=== PATIENT | male | born 1960 | race Caucasian/White ===

== ENCOUNTER → 2016-11-04 | Day surgery (SDC) | payer BC ==
[~2016-11-04] MED LIST: BETA VAL; CLOBETASOL PROP15 GM TOP; EXCEDRIN MIGRA1 EACH PO; FLEXERIL PO; GLUCOSAMINE500 M1; KETOPROFEN PO; MEDROL PO; MULTI VITAMIN1 EACH PO; NAPROSYN500 MG PO; ROBAXIN500 MG PO; VITAMIN C1000 M2 PO; [UNRECOGNIZED DRUG - CODE] TOP
--- NOTE | ~2016-11-04 | OR ---
Unit #: [id number] #: [id number] Patient: KAYLYN MCKEON [id number] [id number] MR#: [id number] NAME: KAYLYN MCKEON. ROOM: Date of Procedure: 11/04/2016 Admission Date: 11/04/2016 Surgeon: Bhaskar Page Jr., M.D. : 1960 Attending Physician: Bhaskar Page Jr., M.D. Primary Care Physician: Fartun Crawley M.D. OPERATIVE REPORT INDICATIONS FOR PROCEDURE The patient is a 56-year-old white male, who presents desiring screening colonoscopy. He has had no previous colonoscopy. He has had no change in bowel habits and no rectal bleeding. The patient has had his prep at home. He understands the procedure including the risks, including that of perforation and bleeding, and consents. PREOPERATIVE DIAGNOSIS Desired screening colonoscopy, rule out pathology. POSTOPERATIVE DIAGNOSIS Several small 1 mm polyps of the rectum, sigmoid, and ascending colon with multiple diverticula in the left colon. ANESTHESIA MAC anesthesia. PROCEDURE PERFORMED Flexible colonoscopy to the distal ileum with cold biopsy, biopsies of multiple small polyps of the rectum and sigmoid and ascending colon. DESCRIPTION OF PROCEDURE The patient was positioned in Coleman position with left side down. After being given MAC anesthesia, digital rectal examination was performed, which revealed no palpable mass or tenderness. No blood or stool within the rectal ampulla. Prostate was normal by palpation. The Olympus colonoscope was advanced through the anal canal up the rectum and retroflexed down to the area of the anorectal region. There was no evidence of any fissures. No significant internal hemorrhoids. The scope was straightened in the rectosigmoid area and the rectum. There were several tiny 1 mm or so polyps. Several of these were biopsied with the cold biopsy forceps without bleeding. The scope was then advanced up into the sigmoid colon and descending colon, where there were few diverticula as well as another small polyp, which was likewise biopsied. The scope was then advanced around the splenic flexure and the transverse colon, around hepatic flexure and ascending colon, down in the area of the cecum. The light from the tip of the scope could be seen transilluminating through the right lower quadrant abdominal wall area. The scope was advanced up the distal ileum approximately 10 to 12 inches. There was no evidence of any ileitis or inflammatory bowel disease. The scope was slowly removed. In the area of the ascending colon, there was a tiny 1 mm polyp which was likewise biopsied without bleeding. There were no other Unit #: [id number] #: [id number] Patient: KAYLYN MCKEON polyps except for those described above. There were no tumors, cancer, or AVMs. No evidence of any colitis or acute diverticulitis. The scope was slowly removed. There was no narrowing or obstruction noted. The patient tolerated the procedure well and discharged in satisfactory condition. Dictated by... Bhaskar Page Jr., MSade. STEPHANIA/joanie TD: 11/04/2016 15:15 JOB #: [id number] OPERATIVE REPORT Page 1 of 1 X Bhaskar Page MD X PROCEDURE OPERATIVE NOTE
== END | disposition home or self-care (01) ==
LOC: COPS 05:31
PROVIDERS: Surgery
PROC: 0DBK8ZX Excision of Ascending Colon, Via Natural or Artificial Opening Endoscopic, Diagnostic (ICD-10-PCS; principal; 2016-11-04 07:30)
PROC: 0DBP8ZX Excision of Rectum, Via Natural or Artificial Opening Endoscopic, Diagnostic (ICD-10-PCS; 2016-11-04 07:30)
DX: Z12.11 Encounter for screening for malignant neoplasm of colon (principal); D12.8 Benign neoplasm of rectum; D12.2 Benign neoplasm of ascending colon; K57.30 Diverticulosis of large intestine without perforation or abscess without bleeding; Z79.899 Other long term (current) drug therapy; M19.90 Unspecified osteoarthritis, unspecified site; Z91.018 Allergy to other foods
CPT/HCPCS: 88305; J2250